=== PATIENT | female | born 1990 | race Caucasian/White ===

== ENCOUNTER 2019-07-20 12:51 | Emergency (ER) | payer MEDICAID ==
[2019-07-20] MEDS ORDERED: SODIUM CHLORIDE 0.9% 1000 ML 1,000 ML IV ONE ×2 (13:21→16:17)
[2019-07-20 14:13] LABS: Basophils % (Auto) 0.3 % (0.0-1.8); Eosinophils % (Auto) 0.1 % (0.0-4.3); Hematocrit 38.9 % (30.3-42.9); Lymphocytes % (Auto) 12.1 % (13.4-35.0); Mean Corpuscular HGB Conc 33 % (30-34); Mean Corpuscular Volume 85 fl (79-97); Monocytes # (Auto) 0.3 K/mm3 (0.0-0.8); Platelet Count 187 K/mm3 (140-440); Red Blood Count 4.56 M/mm3 (3.65-5.03); Red Cell Distribution Width 13.6 % (13.2-15.2)
[2019-07-20 14:33] LABS: Alanine Aminotransferase 13 units/L (7-56); BUN/Creatinine Ratio 12; Blood Urea Nitrogen 6 mg/dL (7-17); Calcium 9.1 mg/dL (8.4-10.2); Hemolysis Index 32
[2019-07-20] MEDS ORDERED: METOCLOPRAMIDE 10 MG/2 ML INJ IV ONE (15:04)
--- NOTE | 2019-07-20 15:04 | Emergency Department Report ---
ED HPI - General Chief complaint: Nausea/Vomiting/Diarrhea Stated complaint: 8WKS /DIZZY/SOB Time Seen by Provider: 07/20/19 15:04 Source: patient Mode of arrival: Ambulatory Limitations: No Limitations - History of Present Illness Initial comments: Patient is a 29-year-old female that comes to the emergency room with nausea and vomiting associated with . Her last menstrual cycle was 05/24/2019. She has had persistent vomiting despite her Zofran. She is non-tachycardic. Systolic pressure is 106 which I suspect is normal for her. She is not obese. Patient does have a history of bariatric surgery a year ago Patient is not actively vomiting in the emergency room. Her home medications include vitamins and Zofran. She is followed by [facility] Patient denies any vaginal bleeding or discharge. She denies any abdominal pain. She denies any back pain. She denies any fever or chills. Patient is ambulatory and nontoxic to ACC. -: Gradual, days(s) Worsens with: none Associated symptoms: nausea/vomiting, malaise. denies: vaginal bleeding, vaginal discharge, abdominal pain, dysuria, headache, vision changes, dysparuenia, rash, seizure, shortness of breath, syncope, weakness :: Yes Number of weeks : 8 OB History - Current : no complications OB History - Previous Pregnancies: no complications Last menstrual period: 05/24/19 - Related Data : 3 Para: 2 Previous Rx's Medication Instructions Recorded Last Taken Type Ondansetron [Zofran Odt] 4 mg PO Q8HR PRN #10 tab.rapdis 07/20/19 Unknown Rx Promethazine [Phenergan] 25 mg OR Q8H PRN #10 supp.rect 07/20/19 Unknown Rx Allergies Allergy/AdvReac Type Severity Reaction Status Date / Time No Known Allergies Allergy Unverified 07/20/19 13:02 ED Review of Systems ROS: Stated complaint: 8WKS /DIZZY/SOB Other details as noted in HPI Comment: All other systems reviewed and negative ED Past Medical Hx - Past Medical History Previous Medical History?: No - Surgical History Past Surgical History?: Yes Additional Surgical History: Bariatric surgery - Family History Family history: no significant - Social History Smoking Status: Never Smoker Substance Use Type: None - Medications Home Medications: Home Medications Medication Instructions Recorded Confirmed Last Taken Type Ondansetron [Zofran Odt] 4 mg PO Q8HR PRN #10 tab.rapdis 07/20/19 Unknown Rx Promethazine [Phenergan] 25 mg OR Q8H PRN #10 supp.rect 07/20/19 Unknown Rx ED Physical Exam - General Limitations: No Limitations General appearance: alert, in no apparent distress - Head Head exam: Present: atraumatic, normocephalic - Eye Eye exam: Present: normal appearance - ENT ENT exam: Present: mucous membranes moist - Neck Neck exam: Present: normal inspection - Respiratory Respiratory exam: Present: normal lung sounds bilaterally. Absent: respiratory distress - Cardiovascular Cardiovascular Exam: Present: regular rate, normal rhythm. Absent: systolic murmur, diastolic murmur, rubs, gallop - GI/Abdominal GI/Abdominal exam: Present: soft, normal bowel sounds - Extremities Exam Extremities exam: Present: normal inspection - Back Exam Back exam: Present: normal inspection - Neurological Exam Neurological exam: Present: alert, oriented X3 - Psychiatric Psychiatric exam: Present: normal affect, normal mood - Skin Skin exam: Present: warm, dry, intact, normal color. Absent: rash ED Course Vital Signs 07/20/19 13:06 Temperature 98.5 F Pulse Rate 95 H Respiratory 16 Rate Blood Pressure 106/55 [Right] O2 Sat by Pulse 100 Oximetry ED Medical Decision Making - Lab Data Result diagrams: 07/20/19 13:45 07/20/19 13:45 - Medical Decision Making Labs 07/20/19 07/20/19 07/20/19 13:45 13:45 Unknown WBC 8.0 RBC 4.56 Hgb 13.0 Hct 38.9 MCV 85 MCH 28 MCHC 33 RDW 13.6 Plt Count 187 Lymph % (Auto) 12.1 L [place] % (Auto) 4.0 Eos % (Auto) 0.1 Baso % (Auto) 0.3 Lymph # 1.0 L [place] # 0.3 Eos # 0.0 Baso # 0.0 Seg Neutrophils % 83.5 H Seg Neutrophils # 6.7 Sodium 135 L Potassium 3.9 Chloride 102.4 Carbon Dioxide 23 Anion Gap 14 BUN 6 L Creatinine 0.5 L Estimated GFR > 60 BUN/Creatinine Ratio 12 Glucose 90 Calcium 9.1 Total Bilirubin 0.70 AST 15 ALT 13 Alkaline Phosphatase 66 Total Protein 6.6 Albumin 4.0 Albumin/Globulin Ratio 1.5 Lipase 32 Urine Color Yellow Urine Turbidity Clear Urine pH 6.0 Ur Specific [place] 1.027 Urine Protein <15 mg/dl Urine Glucose (UA) Neg Urine Ketones Neg Urine Blood Neg Urine Nitrite Neg Urine Bilirubin Neg Urine Urobilinogen < 2.0 Ur Leukocyte Esterase Neg Urine WBC (Auto) 1.0 Urine RBC (Auto) 4.0 U Epithel Cells (Auto) 2.0 Urine Mucus 2+ Vital Signs 07/20/19 13:06 Temperature 98.5 F Pulse Rate 95 H Respiratory 16 Rate Blood Pressure 106/55 [Right] O2 Sat by Pulse 100 Oximetry Labs noted, UA noted. Patient medicated with 2 L normal saline, Zofran and Reglan. Vital signs are normal. Patient is taking p.o. in the ER. She has had no active vomiting. Patient again denies vaginal discharge or bleeding. She denies abdominal pain. She has no fever or chills. Patient being discharged to home with Phenergan and Zofran. She is to follow-up with PRODUCT DESIGN MANAGER as soon as possible - Differential Diagnosis Hyperemesis Critical care attestation.: If time is entered above; I have spent that time in minutes in the direct care of this critically ill patient, excluding procedure time. ED Disposition Clinical Impression: , Vomiting Disposition: - TO HOME OR SELFCARE Is pt being admited?: No Does the pt Need Aspirin: No Condition: Stable Instructions: Morning Sickness (ED), (ED) Additional Instructions: BLAND DIET BANANA RICE APPLESAUCE TOAST ADVANCE TOLERATED STAY WELL HYDRATED WITH WATER - EVEN IF YOU CAN NOT EAT CONTINUE MEDS FOR NAUSEA/VOMITING FOLLOW UP WITH OBGYN JON[facility] FOR RECHECK MAKE SURE THEY KNOW YOU WERE IN ER TODAY AND THEY CAN SEE YOUR LABS IN THE COMPUTER Prescriptions: Promethazine [Phenergan] 25 mg OR Q8H PRN #10 supp.rect PRN Reason: Vomiting Ondansetron [Zofran Odt] 4 mg PO Q8HR PRN #10 tab.rapdis PRN Reason: Vomiting Referrals: MARIA ELENA LORD MD [Staff Physician] - 3-5 Days Time of Disposition: 16:18
[2019-07-20 15:58] LABS: Bilirubin,Urine NEG (Negative); Blood,Urine NEG (Negative); Color,Urine Yellow (Yellow); Mucus,Urine 2+ /HPF; Protein,Urine <15 mg/dL mg/dL (Negative); Urobilinogen,Urine < 2.0 mg/dL (<2.0)
[2019-07-20] MEDS ORDERED: ONDANSETRON 4 MG/2 ML INJ IV ONE (16:18)
[2019-07-20 18:13] VITALS: BP 100/45
== END 2019-07-20 18:05 | disposition home or self-care (01) ==
LOC: ED 12:51
DX: O26.891 Other specified pregnancy related conditions, first trimester (principal); O21.8 Other vomiting complicating pregnancy; Z98.890 Other specified postprocedural states; Z3A.01 Less than 8 weeks gestation of pregnancy
CPT/HCPCS: 36415; 80053; 81001; 83690; 84702; 85025; 96361; 96374; 96375; 99283; J2405; J2765; J7030

== ENCOUNTER 2019-12-27 10:56 | Outpatient (CLI) | payer MEDICAID ==
[2019-12-27 11:38] VITALS: BP 99/59
[2019-12-27] MEDS ORDERED: LACTATED RINGERS 1,000 ML IV SCH (12:00)
[2019-12-27 12:25] LABS: Bacteria,Urine 1+ /HPF (Negative); Bilirubin,Urine NEG (Negative); Blood,Urine NEG (Negative); Calcium Oxalate Crystals,Urine 1+; Color,Urine Yellow (Yellow); Mucus,Urine 3+ /HPF; Protein,Urine <15 mg/dL mg/dL (Negative)
[2019-12-27] MEDS ORDERED: ACETAMINOPHEN 500 MG TAB PO ONE (12:40)
== END 2019-12-27 13:41 | disposition home or self-care (01) ==
LOC: TRG 10:56 → APU 10:57 → TRG 13:38
PROVIDERS: ATTEND Obstetrics & Gynecology
DX: O26.813 Pregnancy related exhaustion and fatigue, third trimester (principal); R10.30 Lower abdominal pain, unspecified; Z3A.31 31 weeks gestation of pregnancy
CPT/HCPCS: 59025; 81001

== ENCOUNTER 2020-02-16 07:28 | Outpatient (CLI) | payer MEDICAID ==
[2020-02-16 07:59] VITALS: BP 103/59
== END 2020-02-16 08:43 | disposition home or self-care (01) ==
LOC: TRG 07:28 → APU 07:29 → TRG 08:43
PROVIDERS: ATTEND Obstetrics & Gynecology
DX: O26.893 Other specified pregnancy related conditions, third trimester (principal); R10.9 Unspecified abdominal pain; Z3A.38 38 weeks gestation of pregnancy
CPT/HCPCS: 59025

== ENCOUNTER 2020-02-20 04:35 | Inpatient (IN) | payer MEDICAID ==
[2020-02-20] MEDS ORDERED: AMPICILLIN/NS 2 GM/100 ML 2 GM/100 ML BAG IV ONE (05:14)
[2020-02-20] MEDS ORDERED: LACTATED RINGERS 1,000 ML ONE (05:16)
[2020-02-20] MEDS ORDERED: NALOXONE 0.4 MG/1 ML INJ IV PRN (05:36)
[2020-02-20] MEDS ORDERED: TERBUTALINE 1 MG/1 ML INJ SUB-Q PRN (05:36)
[2020-02-20] MEDS ORDERED: ONDANSETRON 4 MG/2 ML INJ IV PRN ×2 (05:36→10:40)
[2020-02-20] MEDS ORDERED: ePHEDrine SULFATE 50 MG/1 ML INJ IV PRN (05:36)
[2020-02-20] MEDS ORDERED: fentaNYL 100 MCG/2 ML INJ IV PRN (05:36)
[2020-02-20] MEDS ORDERED: LIDOCAINE (2%) 20 MG/1 ML VIAL 20 ML MDV INFILTRATI ONE (05:36)
[2020-02-20] MEDS ORDERED: BUTORPHANOL 2 MG/1 ML INJ IV PRN (05:36)
[2020-02-20] MEDS ORDERED: MINERAL OIL 30 ML ORAL LIQD PO PRN (05:36)
[2020-02-20 05:39] LABS: Basophils # (Auto) 0.1 K/mm3 (0.0-0.1); Eosinophils % (Auto) 0.3 % (0.0-4.3); Hematocrit 35.4 % (30.3-42.9); Hemoglobin 12.2 gm/dl (10.1-14.3); Lymphocytes # (Auto) 1.9 K/mm3 (1.2-5.4); Lymphocytes % (Auto) 20.3 % (13.4-35.0); Mean Corpuscular HGB Conc 34 % (30-34); Mean Corpuscular Volume 84 fl (79-97); Monocytes # (Auto) 0.6 K/mm3 (0.0-0.8); Monocytes % (Auto) 6.5 % (0.0-7.3); Platelet Count 180 K/mm3 (140-440); Red Cell Distribution Width 13.9 % (13.2-15.2)
[2020-02-20] MEDS ORDERED: LACTATED RINGERS 1,000 ML IV SCH (05:45)
--- NOTE | 2020-02-20 05:45 | History and Physical Report ---
History of Present Illness Date of examination: 02/20/20 Chief complaint: contractions History of present illness: Pt is a 30 year old YAEL 02/27/20 at 39w0d presents with regular painful contractions and advanced cervical dilation of 7 cm. She denies vaginal bleeding or leakage of fluid. She has had care at [facility] since 10 wks complicated by h/o bariatric surgery and GBS positive status. Past History Past Medical History: no pertinent history Past Surgical History: gastric bypass, D&C Family/Genetic History: diabetes, hypertension Social history: no significant social history - Obstetrical History Expected Date of Delivery: 02/27/20 Actual Gestation: 39 Week(s) 0 Day(s) : 4 Para: 2 Hx # Term Pregnancies: 2 Number of Pregnancies: 0 Spontaneous Abortions: 0 Induced : 1 Number of Living Children: 2 Medications and Allergies Allergies Allergy/AdvReac Type Severity Reaction Status Date / Time No Known Allergies Allergy Unverified 07/20/19 13:02 Home Medications Medication Instructions Recorded Confirmed Last Taken Type No Known Home Medications [No 02/20/20 02/20/20 Unknown History Reported Home Medications] Active Meds: Active Medications Butorphanol Tartrate (Stadol) 2 mg IV Q2H PRN PRN Reason: Pain , Severe (7-10) Ephedrine Sulfate (Ephedrine Sulfate) 10 mg IV Q2M PRN PRN Reason: Hypotension Fentanyl (Sublimaze) 100 mcg IV Q2H PRN PRN Reason: Pain,Severe (7-10) LABOR PAIN Ampicillin Sodium (Ampicillin/Ns 2 Gm/100 Ml) 2 gm in 100 mls @ 100 mls/hr IV ONCE ONE; Protocol Stop: 02/20/20 06:13 Last Admin: 02/20/20 05:27 Dose: 100 mls/hr Documented by: Ampicillin Sodium (Ampicillin/Ns 1 Gm/50 Ml) 1 gm in 50 mls @ 100 mls/hr IV Q4HR EILEEN; Protocol Oxytocin/Sodium Chloride (Pitocin/Ns 30 Unit/500ml) 30 units in 500 mls @ 2 mls/hr IV TITR EILEEN; Protocol Lactated Ringer's (Lactated Ringers) 1,000 mls @ 125 mls/hr IV DIRECT ELIEEN Oxytocin/Sodium Chloride (Pitocin/Ns 30 Unit/500ml) 30 units in 500 mls @ 40 mls/hr IV TITR EILEEN; Protocol Lidocaine (Xylocaine 2%) 20 ml INFILTRATI ONCE ONE Stop: 02/20/20 05:37 Mineral Oil (Mineral Oil) 30 ml PO QHS PRN PRN Reason: Constipation Naloxone HCl (Naloxone) 0.1 mg IV Q2MIN PRN PRN Reason: Res Rate </= 8 or 02 SAT < 92% Ondansetron HCl (Zofran) 4 mg IV Q8H PRN PRN Reason: Nausea And Vomiting Terbutaline Sulfate (Brethine) 0.25 mg SUB-Q ONCE PRN PRN Reason: Hyperstimulation/Hypertonicity Review of Systems All systems: negative - Vital Signs Vital signs: Vital Signs Temp 98.0 F 02/20/20 04:47 Temp Pulse Resp BP Pulse Ox 98.5 F 78 18 102/55 97 02/20/20 05:36 02/20/20 05:40 02/20/20 05:36 02/20/20 05:36 02/20/20 05:40 - Physical Exam Breasts: Positive: deferred Abdomen: Positive: soft (gravid ) Uterus: Positive: enlarged (gravid) - Obstetrical FHR: auscultation normal Uterine Contraction Monitor Mode: External Cervical Dilatation: 7.5 Cervical Effacement Percentage: 100 station: -2 Uterine Contraction Pattern: Regular Uterine Tone Measurement Phase: Resting Uterine Contraction Intensity: Moderate Results Result Diagrams: 02/20/20 05:05 Abnormal lab results 02/20/20 Range/Units 05:05 Seg Neutrophils % 71.9 H (40.0-70.0) % All other labs normal. Assessment and Plan A: IUP at 39w0d Active labor GBS positive H/o gastric bypass P: Admit to labor and delivery Ampicillin for GBS prophylaxis Closely monitor maternal and status
[2020-02-20] MEDS ORDERED: OXYTOCIN DRIP 30 UNITS/500 ML BAG IV SCH ×2 (06:00)
--- NOTE | 2020-02-20 07:34 | Procedure Note ---
OB Delivery Note - Delivery Date of Delivery: 02/20/20 Surgeon: KERRY WOMACK Estimated blood loss: other (400 mL) - Vaginal Delivery presentation: vertex Delivery position: OA Intrapartum events: decreased FHT variability Delivery induction: none Delivery augmentation: rupture of membranes Delivery monitor: external FHT, external uterine Route of delivery: Delivery placenta: spontaneous Episiotomy: none Delivery laceration: other (Midline periurethral and bilateral labial lacerations- hemostatic) Anesthesia: intravenous - Infant A at 1 minute: 8 at 5 minutes: 9 Infant Gender: Male (2666g (5lb 14oz) @ 0718 am)
[2020-02-20] MEDS ORDERED: AMPICILLIN/NS 1 GM/50 ML 1 GM/50 ML BAG IV SCH (10:00)
[2020-02-20] MEDS ORDERED: miSOPROStol 100 MCG TAB PR PRN (10:40)
[2020-02-20] MEDS ORDERED: PROMETHAZINE 25 MG RECT SUPP PR PRN (10:40)
[2020-02-20] MEDS ORDERED: WITCH HAZEL/ GLYCERIN PAD TP PRN (10:40)
[2020-02-20] MEDS ORDERED: diphenhydrAMINE 25 MG CAP PO PRN (10:40)
[2020-02-20] MEDS ORDERED: MAGNESIUM HYDROXIDE (MOM) ORAL LIQD UDC PO PRN (10:40)
[2020-02-20] MEDS ORDERED: PROMETHAZINE 25 MG TAB PO PRN (10:40)
[2020-02-20] MEDS ORDERED: LANOLIN/ZINC/DIMETHICONE (LANSINOH) 7 GM TP PRN ×2 (10:40)
[2020-02-20] MEDS ORDERED: BENZOCAINE/MENTHOL 20/0.5% TOP SPRAY 56 GM TP PRN (10:40)
[2020-02-20] MEDS ORDERED: METHYLERGONOVINE MALEATE 0.2 MG/ML VIAL IM PRN (10:40)
[2020-02-20] MEDS ORDERED: HYDROcodone/ACETAMINOPHEN 5-325 MG TAB PO PRN (10:40)
[2020-02-20] MEDS: PRENATAL VIT27-FE FUMARATE-FOLIC ACID VIT TAB PO SCH (10:58)
[2020-02-20] MEDS: FERROUS SULFATE 325 MG TAB PO SCH (10:58)
[2020-02-20] MEDS: IBUPROFEN 600 MG TAB PO SCH ×3 (12:24→23:33)
[2020-02-20 19:23] LABS: Hematocrit 32.8 % (30.3-42.9); Hemoglobin 10.7 gm/dl (10.1-14.3)
[2020-02-21] MEDS: IBUPROFEN 600 MG TAB PO SCH ×2 (05:52→13:34)
[2020-02-21] MEDS ORDERED: DIPHtheria,PERTUSSIS(ACELL),TETANUS VACCINE/PF 0.5 ML VIAL IM ONE (06:00)
[2020-02-21] MEDS ORDERED: MEASLES, MUMPS & RUBELLA 12,500 UNIT/0.5 ML VACCINE SUB-Q ONE ×2 (07:34→13:15)
--- NOTE | 2020-02-21 07:48 | Progress Note ---
Assessment and Plan - Patient Problems (1) Normal spontaneous vaginal delivery Current Visit: Yes Status: Acute Plan to address problem: Patient doing well Discharge home Subjective - Subjective Date of service: 02/21/20 Interval history: The patient is without any complaints. She is tolerating regular diet and voiding spontaneously. Patient reports: appetite normal, voiding normally, pain well controlled : doing well Objective - Vital Signs Latest vital signs: Vital Signs Temp Pulse Resp BP BP Pulse Ox 02/21/20 00:15 98.2 F 70 20 102/58 98 02/20/20 15:30 97.7 F 71 20 99/41 02/20/20 09:10 97.9 F 50 L 20 99/57 99 02/20/20 08:54 69 98/64 02/20/20 08:50 64 98 02/20/20 08:45 68 98 02/20/20 08:43 61 98/60 02/20/20 08:42 63 99/59 02/20/20 08:40 64 99 02/20/20 08:35 60 98 02/20/20 08:30 76 99 02/20/20 08:25 59 L 98 02/20/20 08:20 63 98 02/20/20 08:15 58 L 98 02/20/20 08:10 65 97 02/20/20 08:08 64 93 02/20/20 08:05 67 97 02/20/20 08:00 62 99 02/20/20 07:56 57 L 100/64 02/20/20 07:55 61 98 02/20/20 07:50 56 L 98 Intake and Output 02/20/20 02/21/20 02/21/20 22:59 06:59 14:59 Intake Total 240 Output Total 400 Balance -160 Intake: Oral 240 Output: Urine 400 Void 400 Other: Total, Intake Amount 240 Total, Output Amount 400 # Voids Void 1 - Exam Uterus: Present: normal, firm
--- NOTE | 2020-02-21 07:49 | Discharge Summary ---
Providers - Providers Date of Admission: 02/20/20 05:30 Date of discharge: 02/21/20 Attending physician: KERRY WOMACK 02/20/20 10:40 Consult to Salvage Clerk [CONS] Routine Reason For Exam: assistance with , SNS Primary care physician: KERRY WOMACK Hospitalization Reason for admission: active labor Delivery: Discharge diagnosis: IUP at term delivered Hospital course: The patient was admitted in active labor. She had a spontaneous vaginal delivery. course was uneventful. Condition at discharge: Good Disposition: DC- TO HOME OR SELFCARE - Discharge Diagnoses (1) Normal spontaneous vaginal delivery Status: Acute Plan - Discharge Medications Prescriptions: Ibuprofen [Motrin] 800 mg PO Q8HR PRN #30 tablet PRN Reason: Pain , Severe (7-10) HYDROcodone/APAP 5-325 [[place] 5/325] 1 each PO Q6HR PRN #15 tablet PRN Reason: Pain - Provider Discharge Summary Activity: no sex for 6 weeks, no heavy lifting 4 weeks, no strenuous exercise Diet: routine Instructions: routine Additional instructions: [] Smoking cessation referral if applicable(refer to patient education folder for contact #) [] Refer to [facility] Booklet Call your doctor immediately for: * Fever > 100.5 * Heavy vaginal bleeding ( >1 pad per hour) * Severe persistent headache * Shortness of breath * Reddened, hot, painful area to leg or breast * Schedule visit in 4 weeks - Follow up plan
[2020-02-21] MEDS: FERROUS SULFATE 325 MG TAB PO SCH ×2 (09:27→21:57)
[2020-02-21] MEDS: PRENATAL VIT27-FE FUMARATE-FOLIC ACID VIT TAB PO SCH (09:27)
[2020-02-22] MEDS: IBUPROFEN 600 MG TAB PO SCH ×2 (00:04→05:40)
[2020-02-22 09:45] VITALS: BP 97/49
[2020-02-22] MEDS: PRENATAL VIT27-FE FUMARATE-FOLIC ACID VIT TAB PO SCH (10:27)
[2020-02-22] MEDS: FERROUS SULFATE 325 MG TAB PO SCH (10:27)
== END 2020-02-22 15:11 | disposition home or self-care (01) | DRG 775 ==
LOC: TRG 04:35 → APU 04:36 → TRG 05:30 → LD 05:30 → OB 10:27
PROVIDERS: ADMIT Obstetrics & Gynecology; ATTEND Obstetrics & Gynecology
PROC: 10E0XZZ Delivery of Products of Conception, External Approach (ICD-10-PCS; principal; 2020-02-20)
PROC: 3E0234Z Introduction of Serum, Toxoid and Vaccine into Muscle, Percutaneous Approach (ICD-10-PCS; 2020-02-21)
DX: O76 Abnormality in fetal heart rate and rhythm complicating labor and delivery (principal); Z37.0 Single live birth; Z3A.39 39 weeks gestation of pregnancy; O99.824 Streptococcus B carrier state complicating childbirth; Z20.828 Contact with and (suspected) exposure to other viral communicable diseases; Z23 Encounter for immunization; Z98.84 Bariatric surgery status; O71.82 Other specified trauma to perineum and vulva
CPT/HCPCS: 36415; 59025; 80048; 81001; 82150; 83690; 85014; 85018; 85025; 86592; 86850; 86900; 86901; 87086; 88307; 90471; 90707; 90715; 96360; 96365; G0378; A6250; J0290; J2405; J3010; J7120; U0003

== ENCOUNTER 2020-04-05 07:11 | Day surgery (SDC) | payer MEDICAID ==
[~2020-04-05 07:11] MED LIST: ACETAMINOPHEN 500 MG TAB PO SCH; CELECOXIB 200 MG CAP PO NR; GABAPENTIN 300 MG CAP PO NR; LACTATED RINGERS 1,000 ML IV SCH; MIDAZOLAM 2 MG/2 ML INJ IV NR
[2020-04-05] MEDS ORDERED: ONDANSETRON 4 MG/2 ML INJ IV PRN (08:12)
--- NOTE | 2020-04-05 08:12 | Anesthesia Day of Surgery ---
Anesthesia Day of Surgery - Day of Surgery Patient Examined: Yes Patient H&P Reviewed: Yes Patient is NPO: Yes
--- NOTE | 2020-04-05 08:12 | Anesthesia Consultation ---
Anesthesia Consult and Med Hx Date of service: 04/05/20 - Airway Anesthetic Teeth Evaluation: Good ROM Head & Neck: Adequate Mental/Hyoid Distance: Adequate Mallampati Class: Class I Intubation Access Assessment: Probably Good - Pulmonary Exam CTA: Yes - Cardiac Exam Cardiac Exam: RRR - Pre-Operative Health Status ASA Pre-Surgery Classification: ASA1 Proposed Anesthetic Plan: General - Pulmonary Hx Smoking: No Hx Respiratory Symptoms: No - Cardiovascular System Hx Hypertension: No - Central Nervous System CVA: No - Endocrine Hx Renal Disease: No Hx Liver Disease: No Hx Insulin Dependent Diabetes: No Hx Non-Insulin Dependent Diabetes: No Hx Thyroid Disease: No - Other Systems Hx Obesity: No - Additional Comments Anesthesia Medical History Comments: No hx anesthetic complications.
[2020-04-05] MEDS ORDERED: propofoL 200 MG/20 ML VIAL IV ONE (08:32)
[2020-04-05] MEDS ORDERED: KETAMINE/STERILE WATER 50 MG/ML SYRINGE ONE (08:32)
[2020-04-05] MEDS ORDERED: ROCURONIUM 50 MG/5 ML INJ IV ONE (08:32)
[2020-04-05] MEDS ORDERED: BUPIVACAINE/PF (0.5%) 5 MG/1 ML 30 ML VIAL INFILTRATI ONE ×2 (08:33→09:38)
--- NOTE | 2020-04-05 08:52 | Short Stay Summary ---
Short Stay Documentation Date of service: 04/05/20 Narrative H&P: 30-year-old with undesired fertility. The patient is aware of other contraceptive options and elected to undergo permanent sterilization. - History Principal diagnosis: Unwanted fertility Past Medical History: migraines Past Surgical History: Other (Gastric sleeve) Social history: - Allergies and Medications Current Medications: Allergies No Known Allergies Allergy (Unverified 03/31/20 11:01) Home Medications Medication Instructions Recorded Confirmed Last Taken Type Pnv,Calcium 72/Iron/Folic Acid 1 each PO DAILY 03/31/20 03/31/20 Unknown History [Preplus Ca-Fe 27 mg-FA 1 mg Tb] HYDROcodone/APAP 5-325 [[place] 1 each PO Q6HR PRN #15 tablet 04/05/20 Unknown Rx 5/325] Ibuprofen [Motrin] 800 mg PO Q8HR PRN #30 tablet 04/05/20 Unknown Rx Active Medications Acetaminophen (Acetaminophen 500 Mg Tab) 1,000 mg PO PREOP EILEEN Stop: 04/05/20 21:00 Celecoxib (Celecoxib 200 Mg Cap) 200 mg PO PREOP NR Stop: 04/05/20 21:00 Gabapentin (Gabapentin 300 Mg Cap) 300 mg PO PREOP NR Stop: 04/05/20 21:00 Hydromorphone HCl (Hydromorphone 1 Mg/1 Ml Inj) 0.5 mg IV Q10MIN PRN PRN Reason: Pain , Severe (7-10) Stop: 04/05/20 23:00 Lactated Ringer's (Lactated Ringers) 1,000 mls @ 100 mls/hr IV DIRECT EILEEN Stop: 04/05/20 23:59 Midazolam HCl (Midazolam 2 Mg/2 Ml Inj) 2 mg IV PREOP NR Stop: 04/05/20 21:00 Ondansetron HCl (Ondansetron 4 Mg/2 Ml Inj) 4 mg IV ONCE PRN PRN Reason: Nausea And Vomiting Stop: 04/05/20 23:00 - Physical exam General appearance: no acute distress Integumentary: no rash HEENT: Atraumatic Lungs: Clear to auscultation Breasts: deferred Heart: Regular rate Gastrointestinal: normal Female Genitourinary: deferred Rectal Exam: deferred Extremities: no ischemia Neurological: Normal gait - Brief post op/procedure progress note Date of procedure: 04/05/20 Pre-op diagnosis: Undesired fertility Post-op diagnosis: same Procedure: Laparoscopic bilateral tubal ligation with Filshie clips Anesthesia: ELVAA Surgeon: MARGARET PARK Estimated blood loss: minimal Pathology: none Condition: stable - Hospital course Hospital course: The patient was admitted the day of surgery underwent a laparoscopic bilateral tubal ligation with Filshie clips. Please see operative note for details of surgery. Her postoperative course was uneventful. - Disposition Condition at discharge: Good Disposition: DC-01 TO HOME OR SELFCARE - Discharge Diagnoses (1) Unwanted fertility Status: Acute Short Stay Discharge Plan Activity: other (Pelvic rest for 1 week) Diet: regular Additional Instructions: Follow-up is not required Follow-up as needed Prescriptions: Ibuprofen [Motrin] 800 mg PO Q8HR PRN #30 tablet PRN Reason: Pain , Severe (7-10) HYDROcodone/APAP 5-325 [[place] 5/325] 1 each PO Q6HR PRN #15 tablet PRN Reason: Pain
[2020-04-05] MEDS ORDERED: ONDANSETRON 4 MG/2 ML INJ ONE (09:06)
[2020-04-05] MEDS ORDERED: KETOROLAC 30 MG/1 ML INJ ONE (09:06)
[2020-04-05] MEDS ORDERED: dexAMETHasone 20 MG/5 ML VIAL ONE (09:06)
[2020-04-05] MEDS ORDERED: SODIUM CHLORIDE 0.9% IRR 1,500 ML BOTTLE IR ONE (09:25)
[2020-04-05] MEDS ORDERED: NEOSTIGMINE 10MG/10 ML INJ MDV ONE (09:29)
[2020-04-05] MEDS ORDERED: GLYCOPYRROLATE 0.4 MG/2 ML INJ ONE (09:29)
--- NOTE | 2020-04-05 09:41 | Operative Report ---
Operative Report Operative Report: Date of surgery: April 05, 2020 Preoperative diagnosis: Unwanted fertility Postoperative diagnosis: Same as above Procedure: Laparoscopic bilateral tubal ligation with Filshie clips Surgeon: Komal Alvarado M.D. Anesthesia: General endotracheal anesthesia Estimated blood loss: Minimal Findings: Normal uterus tubes and ovaries Indication: 30-year-old with unwanted fertility. Procedure: The patient was taken to the operating room and given general endotracheal anesthesia without complication. The patient is prepped and draped in a normal sterile fashion. A bivalve speculum was placed in the patient's vagina and a single-tooth tenaculum was placed on the anterior lip of the cervix .A uterine acorn manipulator was placed, and the bivalve speculum was then removed. Attention was then turned to the patient's abdomen where a 5 mm infraumbilical skin incision was then made. A Veress needle was placed and peritoneal entry was verified water-filled syringe. Insufflation of the peritoneal cavity was performed with CO2 gas. A 5 mm trocar was placed and the laparoscope was then inserted. The patient was then placed in Trendelenburg. A 7 mm suprapubic skin incision was then made. Under direct visualization a 7 mm trocar was then placed. An additional 5 mm left lateral trocar was also placed. General survey of the patient's abdomen revealed normal uterus tubes and ovaries. The fallopian tube was then followed out to the fimbriated end. A Filshie clip was applied to the ampullary portion of the tube this was performed on the contralateral side as well. The trocars were then removed. The pneumoperitoneum was then released. The 5 mm trocar laparoscope was then removed. The skin incisions were then closed with 4-0 Monocryl. The incisions were injected with quarter percent Marcaine. Dressings were applied to the incision. The vaginal instruments were then removed atraumatically. Then successfully extubated and taken to the recovery room. All sponge laps and needle counts were correct x2.
[2020-04-05] MEDS: HYDROmorphone 1 MG/1 ML INJ IV PRN ×2 (09:58→10:08)
[2020-04-05] MEDS ORDERED: MEPERIDINE 25 MG/1 ML INJ IV PRN (10:00)
[2020-04-05] MEDS ORDERED: MEPERIDINE 25 MG/1 ML INJ ONE (10:18)
[2020-04-05] MEDS ORDERED: HYDROcodone/ACETAMINOPHEN 5-325 MG TAB PO PRN (10:27)
[2020-04-05 10:36] VITALS: BP 113/72
--- NOTE | 2020-04-05 13:23 | Post Anesthesia Evaluation ---
- Post Anesthesia Evaluation Patient Participated: Yes Airway Patent: Yes Stable Respiratory Function: Yes Nausea/Vomiting: No Temp > 96.8F: Yes Pain Manageable: Yes Adequeate Hydration: Yes Anesthesia Complications: No
== END 2020-04-05 11:30 | disposition home or self-care (01) ==
LOC: OR 07:11
PROVIDERS: ATTEND Obstetrics & Gynecology
DX: Z30.2 Encounter for sterilization (principal); G43.909 Migraine, unspecified, not intractable, without status migrainosus; Z98.890 Other specified postprocedural states; Z79.899 Other long term (current) drug therapy; Z83.3 Family history of diabetes mellitus; Z80.8 Family history of malignant neoplasm of other organs or systems; Z82.49 Family history of ischemic heart disease and other diseases of the circulatory system
CPT/HCPCS: 58671; 81025; J1100; J1170; J1885; J2175; J2250; J2405; J2704; J2710; J3490; J7120